=== PATIENT | male | born 1995 | race Caucasian/White ===

== ENCOUNTER → 2017-01-19 | Day surgery (SDC) | payer OTHER ==
[~2017-01-19] MED LIST: BUPIVACAINE HCL PF 0.25% 30 ML VIAL ONE; CLINDAMYCIN PHOS 600 MG/4 ML VIAL ONE; GENTAMICIN SULFATE 80 MG/2 ML VIAL ONE; KETOROLAC TROMETHAMINE 30 MG/ML (IVP) VIAL IV PUSH ONE; LACTATED RINGER'S 1000 ML INJ 0 ML ONE; LIDOCAINE HCL 1% PF 30 ML VIAL ONE; ONDANSETRON HCL 4 MG/2 ML VIAL IV PUSH ONE; PROPOFOL 200 MG/20 ML AMP IV ONE; ceFAZolin INJ 1,000 MG VIAL ONE
--- NOTE | 2017-01-19 22:12 | PD.OP ---
cc: Garrison Sheikh Jr., MD Operative Report Date of Surgery: Jan 19, 2017 Preoperative Diagnosis: right 5th finger proximal phalanx fracture Postoperative Diagnosis: same Procedure: Right fifth finger proximal fillings open reduction internal fixation Anesthesia: Gen. Surgeon: Garrison Sheikh Scow Derrick Operator(s): Staff Resident Surgeon: None Operation and Findings: Patient was seen and evaluated preoperatively and found to have a 5th finger proximal phalanx fracture. Fracture was closed.. Informed consent was obtained after detailed discussion of risk and benefits including bleeding, infection, injury to arteries, nerves, and blood vessels, weakness and numbness of hand, and tendon rupture. Informed consent was obtained. Patient received IV antibiotics prior to incision. Timeout procedure was performed. Operative extremity was prepped with alcohol followed by Hibiclens and draped usual sterile fashion. A standard dorsal incision made at the level of the proximal phalanx just off the midline. Dissection carefully taken down to the ulnar border of the proximal phalanx. Care was taken not to injure the digital neurovascular bundle. The extensor tendon was protected. A long oblique fracture was visualized. Fracture fragments where cleaned and reduced with a bone clamp. The fracture was definitively fixed with 2x 1.3mm compression lag screws. Screws were predrilled and measured for appropriate length. Final fluoroscopy revealed excellent fixation and well-placed hardware. The wound was thoroughly irrigated with sterile saline. Subcutaneous tissue was closed with 3-0 Vicryl and skin was closed with 3-0 nylon. Sterile dressings were applied with Xeroform, 4 x 4, soft roll, and a well padded ulnar gutter splint. Patient was awakened and transferred to recovery room in stable condition POSTP-OP PLAN OF ACTIVITY Antiocoagulation: SCD Weight bearing status: NWB Dressing: Do not remove splint. keep Clean and dry Dispo: expected discharge home from PACU Garrison Sheikh Jr., MD Jan 19, 2017 22:12
== END | disposition home or self-care (01) ==
LOC: ESDC 11:51
PROVIDERS: ATTEND Orthopaedic Surgery
DX: S62.616A Displaced fracture of proximal phalanx of right little finger, initial encounter for closed fracture (principal)
CPT/HCPCS: 01830; 26735; 73140; 76000; C1713; J0690; J1580; J1885; J2405; J3010; J7120